=== PATIENT | male | born 1950 | race African-American/Black ===

== ENCOUNTER 2017-09-15 02:49 | Inpatient (IN) | payer MEDICARE, MEDICAID ==
[~2017-09-15] VITALS: Ht 190.5 cm; Wt 77.8 kg
[~2017-09-15 02:49] MED LIST: BENA20TA3 PO; METF500T PO; METH500T6 PO
[2017-09-15] MEDS ORDERED: IPRATROPIUM BROMIDE (0.02%) 0.5MG/2.5ML NEB HHN STA (03:10)
[2017-09-15] MEDS ORDERED: METHYLPREDNISOLONE SOD SUCC 125 MG/2 ML VIAL IV STA (03:10)
[2017-09-15] MEDS ORDERED: ALBUTEROL (0.083%) 2.5MG/3ML NEB HHN STA (03:10)
[2017-09-15] MEDS ORDERED: LABETALOL HCL 20MG/4ML CARPUJECT IV ONE (03:15)
[2017-09-15] MEDS ORDERED: ASPIRIN 81MG TABLET PO ONE (03:15)
[2017-09-15] MEDS ORDERED: MAGNESIUM 2 G PREMIX 50 ML IV ONE (03:15)
[2017-09-15] MEDS ORDERED: LEVOFLOXACIN 750MG PREMIX 150 ML IV ONE (03:15)
[2017-09-15] MEDS ORDERED: NITROGLYCERIN OINT 1GM/INCH UDPKT TD ONE (03:15)
[2017-09-15 03:54] LABS: BG BASE EXCESS 4.1 mmol/L (-2.0-2.0); BG CARBOXYHEMOGLOBIN 5.4 % (0.5-1.5); BG DEOXYHEMOGLOBIN 7.6 % (0.0-5.0); BG FRACTION INSPIRED OXYGEN 21; BG HCO3 ACT 29.5 mmol/L (22.0-26.0); BG PCO2 47.1 mmHg (35.0-45.0); BG PH 7.415 (7.350-7.450); BG PO2 60.7 mmHg (75.0-100.0); BG SAMPLE SITE LEFT RADIAL; BG TOTAL HEMOGLOBIN 15.1 g/dL (12.0-18.0); BG VENT MODE ROOM AIR
[2017-09-15 04:29] LABS: BASOPHILS % 0.7 % (0.0-2.0); EOSINOPHILS % 9.1 % (0.0-5.0); HEMATOCRIT. 42.5 % (42.0-52.0); HEMOGLOBIN. 14.1 g/dL (14.0-18.0); LYMPHOCYTES % 19.1 % (20.0-50.0); MEAN CORPUSCULAR HEMOGLOBIN 28.9 pg (28.0-32.0); MEAN CORPUSCULAR VOLUME 86.9 fL (80.0-94.0); MEAN PLATELET VOLUME 10.8 fl (7.4-10.4); MONOCYTES % 8.4 % (2.0-8.0); NEUTROPHILS % 62.7 % (40.0-76.0); PLATELET 173 x1000/uL (130-400); RED BLOOD CELL COUNT 4.89 mill/uL (4.7-6.1); RED CELL DISTRIBUTION WIDTH 14.7 % (11.6-14.6)
[2017-09-15 04:33] LABS: PROTHROMBIN TIME 10.9 sec (9.4-11.6)
[2017-09-15 04:42] LABS: CHLORIDE 101 mEq/L (98-107); ETHANOL BLOOD < 10 mg/dL; TROPONIN I 0.18 ng/mL (0.00-0.04)
[2017-09-15 05:09] LABS: BG BASE EXCESS 5.4 mmol/L (-2.0-2.0); BG CARBOXYHEMOGLOBIN 4.8 % (0.5-1.5); BG DEOXYHEMOGLOBIN 11.7 % (0.0-5.0); BG FRACTION INSPIRED OXYGEN 21DR; BG HCO3 ACT 31.4 mmol/L (22.0-26.0); BG METHEMOGLOBIN 0.2 % (0.0-1.5); BG OXYGEN SATURATION 87.7 % (92.0-98.5); BG OXYHEMOGLOBIN 83.3 % (94.0-97.0); BG PCO2 50.8 mmHg (35.0-45.0); BG PH 7.409 (7.350-7.450); BG PO2 52.1 mmHg (75.0-100.0); BG SAMPLE SITE LEFT RADIAL; BG TOTAL HEMOGLOBIN 14.9 g/dL (12.0-18.0); BG VENT MODE ROOM AIR
[2017-09-15] MEDS ORDERED: LABETALOL 5MG/ML SYR 20 MG/4 ML SYRINGE IV NR (06:00)
[2017-09-15 06:08] LABS: CLARITY URINE CLEAR (CLEAR); COLOR URINE YELLOW (YELLOW); KETONES URINE NEGATIVE (NEGATIVE); LEUKOCYTE ESTERASE URINE NEGATIVE (NEGATIVE); NITRITE URINE NEGATIVE (NEGATIVE); OCCULT BLOOD URINE NEGATIVE (NEGATIVE); PROTEIN URINE TRACE (NEGATIVE); SPECIFIC GRAVITY URINE 1.026 (1.005-1.030); UROBILINOGEN URINE 0.2 E.U./dL (0.2-1.0)
[2017-09-15 06:53] LABS: *AMPHETAMINES SCREEN URINE NEGATIVE (NEGATIVE); *BARBITURATES SCREEN URINE NEGATIVE (NEGATIVE); *BENZODIAZEPINES SCREEN URINE NEGATIVE (NEGATIVE)
[2017-09-15 06:58] LABS: *COCAINE SCREEN URINE PRESUMTIVE POSITIVE (NEGATIVE); CANNABINOID URINE SCREEN NEGATIVE (NEGATIVE); METHADONE URINE SCREEN NEGATIVE (NEGATIVE); OPIATES URINE SCREEN NEGATIVE (NEGATIVE)
[2017-09-15 08:57] LABS: PHENCYCLIDINE URINE SCREEN NEGATIVE (NEGATIVE)
[2017-09-15] MEDS ORDERED: GLIP10TA10 PO (12:53)
[2017-09-15] MEDS ORDERED: METF10002 PO (12:53)
[2017-09-15 13:57] VITALS: BP 139/92
[2017-09-15 14:45] VITALS: BP 139/92
[2017-09-15 16:00] VITALS: BP 130/65
[2017-09-15] MEDS ORDERED: DEXTROSE 50% WATER 50ML SYRINGE IV PRN (17:30)
[2017-09-15] MEDS: INSULIN LISPRO 100 UNITS/ML SUBCUT SCH ×2 (17:38→21:27)
[2017-09-15] MEDS ORDERED: LORAZEPAM 2MG/ML CPJ IV PRN (17:45)
[2017-09-15] MEDS ORDERED: HYDROMORPHONE HCL/PF 2MG/ML CPJ IV PRN (17:45)
[2017-09-15] MEDS: METFORMIN HCL 500MG TABLET PO SCH (17:46)
[2017-09-15] MEDS: BENAZEPRIL 20MG TABLET PO SCH (17:47)
[2017-09-15] MEDS: ENOXAPARIN 40MG/0.4ML SYR SUBCUT SCH (17:48)
[2017-09-15 18:12] LABS: CLARITY URINE CLEAR (CLEAR); COLOR URINE YELLOW (YELLOW); KETONES URINE NEGATIVE (NEGATIVE); LEUKOCYTE ESTERASE URINE NEGATIVE (NEGATIVE); NITRITE URINE NEGATIVE (NEGATIVE); OCCULT BLOOD URINE NEGATIVE (NEGATIVE); PROTEIN URINE NEGATIVE (NEGATIVE); SPECIFIC GRAVITY URINE 1.037 (1.005-1.030); UROBILINOGEN URINE 0.2 E.U./dL (0.2-1.0)
[2017-09-15 18:32] LABS: CREATINE KINASE MB FRACTION 3.5 ng/mL (0.5-3.6); TROPONIN I 0.13 ng/mL (0.00-0.04)
[2017-09-15 20:00] VITALS: BP 137/71
[2017-09-15] MEDS ORDERED: INSULIN LISPRO 100 UNITS/ML SUBCUT SCH (21:00)
[2017-09-15] MEDS: BLOOD SUGAR DIAGNOSTIC STRIP TEST SCH (21:10)
[2017-09-15] MEDS: IPRATROPIUM/ALBUTEROL 0.5-3(2.5)MG/3ML NEB HHN SCH (21:22)
[2017-09-16] VITALS: BP 128/83
[2017-09-16] MEDS: IPRATROPIUM/ALBUTEROL 0.5-3(2.5)MG/3ML NEB HHN SCH ×6 (00:45→20:06)
[2017-09-16 00:59] LABS: CREATINE KINASE MB FRACTION 2.8 ng/mL (0.5-3.6)
[2017-09-16 04:00] VITALS: BP 139/84
[2017-09-16] MEDS: GLIPIZIDE 10MG TABLET PO SCH (05:22)
[2017-09-16] MEDS: BLOOD SUGAR DIAGNOSTIC STRIP TEST SCH ×4 (05:22→20:33)
[2017-09-16] MEDS: METFORMIN HCL 500MG TABLET PO SCH ×2 (05:23→17:23)
[2017-09-16 08:00] VITALS: BP 134/96
[2017-09-16] MEDS: BENAZEPRIL 20MG TABLET PO SCH (08:59)
[2017-09-16 09:03] LABS: CREATINE KINASE 108 IU/L (39-308)
[2017-09-16] MEDS: INSULIN LISPRO 100 UNITS/ML SUBCUT SCH ×4 (09:09→20:56)
[2017-09-16 12:00] VITALS: BP 147/96
[2017-09-16] MEDS ORDERED: POTASSIUM CHLORIDE 20MEQ TABLET SR PO NR (14:00)
[2017-09-16] MEDS: PREDNISONE 20MG TABLET PO SCH (14:27)
[2017-09-16] MEDS: AZITHROMYCIN 500 MG TABLET PO SCH (14:28)
[2017-09-16] MEDS: NICOTINE 14MG PATCH TD SCH (15:00)
[2017-09-16 16:00] VITALS: BP 152/99
[2017-09-16] MEDS: CLONIDINE 0.1MG TABLET PO PRN (17:23)
[2017-09-16] MEDS: ENOXAPARIN 40MG/0.4ML SYR SUBCUT SCH (17:35)
[2017-09-16 20:00] VITALS: BP 136/93
[2017-09-16] MEDS: BUDESONIDE 0.5MG/2ML NEB HHN SCH (20:05)
[2017-09-16] MEDS: GUAIFENESIN 600MG ER TABLET PO SCH (20:49)
[2017-09-17] VITALS: BP 120/72
[2017-09-17] MEDS: IPRATROPIUM/ALBUTEROL 0.5-3(2.5)MG/3ML NEB HHN SCH ×4 (00:40→11:13)
[2017-09-17 04:00] VITALS: BP 127/72
[2017-09-17 06:20] LABS: BASOPHILS % 0.2 % (0.0-2.0); EOSINOPHILS % 0.6 % (0.0-5.0); HEMATOCRIT. 40.1 % (42.0-52.0); HEMOGLOBIN. 13.6 g/dL (14.0-18.0); MEAN CORPUSCULAR HEMOGLOBIN 29.6 pg (28.0-32.0); MEAN CORPUSCULAR VOLUME 87.1 fL (80.0-94.0); MEAN PLATELET VOLUME 11.2 fl (7.4-10.4); MONOCYTES % 7.5 % (2.0-8.0); NEUTROPHILS % 74.7 % (40.0-76.0); PLATELET 170 x1000/uL (130-400); RED CELL DISTRIBUTION WIDTH 15.1 % (11.6-14.6)
[2017-09-17 06:25] LABS: CHLORIDE 104 mEq/L (98-107)
[2017-09-17] MEDS: BLOOD SUGAR DIAGNOSTIC STRIP TEST SCH ×2 (06:40→12:12)
[2017-09-17] MEDS: INSULIN LISPRO 100 UNITS/ML SUBCUT SCH ×2 (06:48→12:41)
[2017-09-17] MEDS ORDERED: METFORMIN HCL 500MG TABLET PO SCH (07:15)
[2017-09-17 08:00] VITALS: BP 167/78
[2017-09-17] MEDS: BUDESONIDE 0.5MG/2ML NEB HHN SCH (08:00)
[2017-09-17] MEDS: GLIPIZIDE 10MG TABLET PO SCH (08:14)
[2017-09-17] MEDS: PREDNISONE 20MG TABLET PO SCH (08:14)
[2017-09-17] MEDS: METFORMIN HCL 500MG TABLET PO SCH (08:14)
[2017-09-17] MEDS: GUAIFENESIN 600MG ER TABLET PO SCH (08:15)
[2017-09-17] MEDS: AZITHROMYCIN 500 MG TABLET PO SCH (08:15)
[2017-09-17] MEDS: BENAZEPRIL 20MG TABLET PO SCH (08:16)
[2017-09-17] MEDS: NICOTINE 14MG PATCH TD SCH ×3 (08:17→09:00)
[2017-09-17 12:00] VITALS: BP 160/87
[2017-09-17] MEDS: CLONIDINE 0.1MG TABLET PO PRN (12:40)
[2017-09-17 13:10] VITALS: BP 153/82
[2017-09-17 13:13] VITALS: BP 153/82
== END 2017-09-17 13:25 | disposition home or self-care (01) | DRG 896 ==
LOC: ER 02:49 → 5WST 04:45 → EDBEDREQ 05:12 → ENRESERV 11:23
PROVIDERS: ADMIT Internal Medicine Nephrology; ATTEND Internal Medicine Nephrology
DX: F14.188 Cocaine abuse with other cocaine-induced disorder (principal); I21.4 Non-ST elevation (NSTEMI) myocardial infarction; E44.0 Moderate protein-calorie malnutrition; J44.1 Chronic obstructive pulmonary disease with (acute) exacerbation; J45.901 Unspecified asthma with (acute) exacerbation; E87.6 Hypokalemia; E11.9 Type 2 diabetes mellitus without complications; I10 Essential (primary) hypertension; E78.5 Hyperlipidemia, unspecified; F17.210 Nicotine dependence, cigarettes, uncomplicated; Z91.013 Allergy to seafood; Y92.89 Other specified places as the place of occurrence of the external cause; Z79.899 Other long term (current) drug therapy; Z79.84 Long term (current) use of oral hypoglycemic drugs; Z71.6 Tobacco abuse counseling; Z68.21 Body mass index [BMI] 21.0-21.9, adult
CPT/HCPCS: 36415; 36600; 71045; 80048; 80053; 80061; 80305; 81001; 82375; 82550; 82553; 82805; 82962; 83605; 83880; 84484; 85025; 85610; 87040; 87086; 87804; 93005; 96365; 96368; 99291; A6261; G0482; J1650; J1815; J1956; J2930; J3475; J3490; J7512; J7611; J7620; J7626

== ENCOUNTER 2017-12-12 07:19 | Emergency (ER) | payer MEDICARE, OTHER, MEDICAID ==
[~2017-12-12] VITALS: Ht 182.9 cm; Wt 84.0 kg
[~2017-12-12 07:19] MED LIST changes: +GLIP10TA10 PO
[2017-12-12] MEDS ORDERED: CLONIDINE 0.2MG TABLET PO ONE (09:00)
[2017-12-12] MEDS ORDERED: SODIUM CHLORIDE 0.9% 1,000 ML IV ONE (09:00)
[2017-12-12 09:16] LABS: CHLORIDE 99 mEq/L (98-107)
[2017-12-12] MEDS ORDERED: INSULIN REGULAR (HUMULIN R) 300UNITS/3ML IV ONE (12:45)
[2017-12-12 18:33] VITALS: BP 147/75
== END 2017-12-12 18:36 | disposition left against medical advice (07) ==
LOC: ER 08:54
DX: E11.10 Type 2 diabetes mellitus with ketoacidosis without coma (principal); E86.0 Dehydration; F17.200 Nicotine dependence, unspecified, uncomplicated; I10 Essential (primary) hypertension; J45.909 Unspecified asthma, uncomplicated; Z91.14 Patient's other noncompliance with medication regimen; Z79.4 Long term (current) use of insulin; Z91.013 Allergy to seafood; Z98.890 Other specified postprocedural states
CPT/HCPCS: 36415; 80048; 82962; 93005; 96361; 96374; 99285; J1815; J7030

== ENCOUNTER 2017-12-26 02:13 | Emergency (ER) | payer MEDICARE, OTHER, MEDICAID ==
[~2017-12-26] VITALS: Ht 177.8 cm; Wt 73.0 kg
[2017-12-26] MEDS ORDERED: TRAMADOL 50MG TABLET PO ONE (02:30)
[2017-12-26] MEDS ORDERED: SODIUM CHLORIDE 0.9% 1,000 ML IV ONE (02:57)
[2017-12-26 03:20] LABS: CHLORIDE 100 mEq/L (98-107)
[2017-12-26 03:23] LABS: BASOPHILS % 0.5 % (0.0-2.0); EOSINOPHILS % 2.7 % (0.0-5.0); HEMATOCRIT. 44.8 % (42.0-52.0); HEMOGLOBIN. 15.3 g/dL (14.0-18.0); LYMPHOCYTES % 20.2 % (20.0-50.0); MEAN CORPUSCULAR HEMOGLOBIN 29.4 pg (28.0-32.0); MEAN CORPUSCULAR VOLUME 86.1 fL (80.0-94.0); MEAN PLATELET VOLUME 10.8 fl (7.4-10.4); MONOCYTES % 9.8 % (2.0-8.0); NEUTROPHILS % 66.8 % (40.0-76.0); PLATELET 150 x1000/uL (130-400); RED BLOOD CELL COUNT 5.21 mill/uL (4.7-6.1); RED CELL DISTRIBUTION WIDTH 14.6 % (11.6-14.6)
[2017-12-26] MEDS ORDERED: INSULIN REGULAR (HUMULIN R) 300UNITS/3ML IV ONE (03:30)
[2017-12-26] MEDS ORDERED: HYDRALAZINE HCL 50MG TABLET PO ONE (04:15)
[2017-12-26 04:53] VITALS: BP 168/101
== END 2017-12-26 05:15 | disposition home or self-care (01) ==
LOC: ER 02:13
DX: E11.65 Type 2 diabetes mellitus with hyperglycemia (principal); M25.551 Pain in right hip; J45.909 Unspecified asthma, uncomplicated; I10 Essential (primary) hypertension; Z79.84 Long term (current) use of oral hypoglycemic drugs; Z98.890 Other specified postprocedural states; Z91.013 Allergy to seafood
CPT/HCPCS: 36415; 73502; 80053; 82962; 85025; 96361; 96374; 99285; J1815; J7030

== ENCOUNTER 2019-03-12 17:03 | Emergency (ER) | payer MEDICAID, MEDICARE, OTHER ==
[~2019-03-12] VITALS: Ht 182.9 cm; Wt 74.0 kg
[~2019-03-12 17:03] MED LIST changes: +BENA20TA10 PO; -BENA20TA3 PO
[2019-03-12 19:06] VITALS: BP 186/116
== END 2019-03-12 20:29 | disposition left against medical advice (07) ==
LOC: ER 17:03
DX: Z53.21 Procedure and treatment not carried out due to patient leaving prior to being seen by health care provider (principal)